=== PATIENT | female | born 1975 | race Caucasian/White ===

== ENCOUNTER 2017-03-30 20:45 | Inpatient (IN) | payer OTHER ==
[~2017-03-30] VITALS: Ht 162.6 cm; Wt 86.2 kg
[2017-03-30 20:58] VITALS: BP 130/73
[2017-03-30] MEDS ORDERED: PRENA1 CHEW TA1.4 MG PO (22:05)
[2017-03-30] MEDS ORDERED: ASPIR 8181 M1 PO (22:05)
[2017-03-30 22:06] VITALS: BP 126/75
[2017-03-30] MEDS ORDERED: ZANTAC150 MG PO (22:06)
[2017-03-30 23:13] VITALS: BP 119/68
[2017-03-30 23:15] LABS: BASOPHIL (%) 0.4 % (0-1); EOSINOPHIL (%) 0.8 % (0-5); EOSINOPHIL COUNT 0.1 K/uL (0-0.3); HEMATOCRIT 52.3 % (36.0-46.0); HEMOGLOBIN 17.2 G/DL (11.9-15.5); IMMATURE GRANULOCYTE (%) 1.8 % (0.0-0.7); LYMPHOCYTE (%) 16.6 % (15-42); LYMPHOCYTE COUNT 1.7 K/uL (1.0-2.8); MCH 27.3 PG (29.0-34.0); MCHC 32.9 G/DL (30.0-36.0); MCV 83.1 FL (83-99); MONOCYTE COUNT 0.4 K/uL (0-0.8); NEUTROPHIL (%) 76.4 % (45-76); NEUTROPHIL COUNT 7.7 K/uL (1.8-6.4); PLATELET COUNT 126 K/uL (156-360); RBC DIS.WIDTH-CV 14.8 % (11.8-14.6); RBC DIS.WIDTH-SD 43.8 % (39-53); RED BLOOD COUNT 6.29 M/uL (3.80-5.20)
[2017-03-31] VITALS (29 sets, daily range): BP systolic 92–137; BP diastolic 49–83
[2017-03-31 09:38] LABS: BASOPHIL (%) 0.4 % (0-1); BASOPHIL COUNT 0.1 K/uL (0-0.1); EOSINOPHIL (%) 0.7 % (0-5); EOSINOPHIL COUNT 0.1 K/uL (0-0.3); HEMATOCRIT 31.6 % (36.0-46.0); IMMATURE GRANULOCYTE (%) 1.8 % (0.0-0.7); LYMPHOCYTE COUNT 2.5 K/uL (1.0-2.8); MCH 26.9 PG (29.0-34.0); MCHC 31.3 G/DL (30.0-36.0); MCV 85.9 FL (83-99); MONOCYTE (%) 4.9 % (3-12); MONOCYTE COUNT 0.7 K/uL (0-0.8); NEUTROPHIL (%) 74.2 % (45-76); NEUTROPHIL COUNT 10.1 K/uL (1.8-6.4); RBC DIS.WIDTH-CV 14.7 % (11.8-14.6); RBC DIS.WIDTH-SD 46.3 % (39-53); WHITE BLOOD COUNT 13.6 K/uL (4.1-10.2)
[2017-03-31 09:40] LABS: HEMOGLOBIN 9.9 G/DL (11.9-15.5); PLATELET COUNT 189 K/uL (156-360); RED BLOOD COUNT 3.68 M/uL (3.80-5.20)
[2017-04-01] VITALS (15 sets, daily range): BP systolic 89–121; BP diastolic 51–68
[2017-04-01] MEDS ORDERED: DOCUSATE SODIU100 MG PO (01:33)
[2017-04-01] MEDS ORDERED: IBUPROFEN800 MG PO (01:34)
[2017-04-01] MEDS ORDERED: ENDOCET 5-3251 EACH PO (01:34)
[2017-04-01 10:18] LABS: BASOPHIL (%) 0.2 % (0-1); EOSINOPHIL (%) 0.5 % (0-5); EOSINOPHIL COUNT 0.1 K/uL (0-0.3); HEMATOCRIT 26.7 % (36.0-46.0); HEMOGLOBIN 8.6 G/DL (11.9-15.5); IMMATURE GRANULOCYTE (%) 1.1 % (0.0-0.7); LYMPHOCYTE (%) 15.7 % (15-42); LYMPHOCYTE COUNT 1.9 K/uL (1.0-2.8); MCH 27.8 PG (29.0-34.0); MCHC 32.2 G/DL (30.0-36.0); MCV 86.4 FL (83-99); MONOCYTE COUNT 0.6 K/uL (0-0.8); NEUTROPHIL (%) 77.5 % (45-76); NEUTROPHIL COUNT 9.4 K/uL (1.8-6.4); PLATELET COUNT 165 K/uL (156-360); RBC DIS.WIDTH-CV 14.7 % (11.8-14.6); RBC DIS.WIDTH-SD 45.6 % (39-53); RED BLOOD COUNT 3.09 M/uL (3.80-5.20); WHITE BLOOD COUNT 12.2 K/uL (4.1-10.2)
[2017-04-02 07:33] VITALS: BP 129/73
[2017-04-02 11:04] VITALS: BP 125/65
[2017-04-02 14:55] VITALS: BP 120/67
[2017-04-02 23:10] VITALS: BP 118/80
== END 2017-04-03 16:49 | disposition home or self-care (01) | DRG 765 ==
LOC: LDRP-OP 20:45 → 2WEST 20:46 → LDRP-OP 05-02 07:37
PROVIDERS: Advanced Practice Midwife; Obstetrics & Gynecology
PROC: 10D00Z1 Extraction of Products of Conception, Low, Open Approach (ICD-10-PCS; principal; 2017-04-01)
DX: O99.824 Streptococcus B carrier state complicating childbirth (principal); F33.9 Major depressive disorder, recurrent, unspecified; O34.211 Maternal care for low transverse scar from previous cesarean delivery; Z37.0 Single live birth; Z3A.40 40 weeks gestation of pregnancy; O66.41 Failed attempted vaginal birth after previous cesarean delivery; K58.9 Irritable bowel syndrome, unspecified; Z87.891 Personal history of nicotine dependence; Z86.32 Personal history of gestational diabetes; O99.62 Diseases of the digestive system complicating childbirth; O99.344 Other mental disorders complicating childbirth; F43.10 Post-traumatic stress disorder, unspecified; F41.9 Anxiety disorder, unspecified; O77.0 Labor and delivery complicated by meconium in amniotic fluid; M79.7 Fibromyalgia; G43.909 Migraine, unspecified, not intractable, without status migrainosus; O99.354 Diseases of the nervous system complicating childbirth; O65.5 Obstructed labor due to abnormality of maternal pelvic organs; N85.8 Other specified noninflammatory disorders of uterus; O99.89 Other specified diseases and conditions complicating pregnancy, childbirth and the puerperium; N73.6 Female pelvic peritoneal adhesions (postinfective); O62.1 Secondary uterine inertia; O12.04 Gestational edema, complicating childbirth
CPT/HCPCS: 85025; 86850; 86900; 86901; C1755; G0378; J0690; J1170; J1885; J2175; J2270; J2274; J2405; J2540; J2765; J3010; J7120